=== PATIENT | female | born 1950 | race Caucasian/White ===

== ENCOUNTER 2021-11-12 09:45 | Day surgery (SDC) | payer MEDICARE, OTHER ==
[~2021-11-12] VITALS: Ht 165 cm; Wt 49.0 kg
[~2021-11-12 09:45] MED LIST: ASCORBIC ACID500 MG PO; BACLOFEN 20MG T20 MG PO; CALCIUM WITH D3 PO; HYDROCODON-ACE1 EAC2 PO; LIPITOR 10MG TA10 MG PO; NEURONTIN300 MG PO; PROLIA60 MG/1 ML SC; VITAMIN A2400 MCG PO; VITAMIN D350 MC5 PO; WARFARIN SODIU2.5 MG PO; WARFARIN SODIUM5 MG PO
[2021-11-12] MEDS ORDERED: ELIQUIS5 MG PO (10:52)
[2021-11-12 11:47] LABS: INR 1.03 (0.9-1.2); PROTHROMBIN TIME 12.9 SECONDS (11.8-13.4); PTT 27.5 SECONDS (24.4-34.7)
[2021-11-13 07:26] LABS: BASOPHIL 0.3 % (0-2); EOSINOPHIL 2.3 % (0-7); HCT 33.9 % (37.0-47.0); HGB 10.6 g/dl (12.5-16.0); LYMPHOCYTE 14.7 % (15-48); MCH 29.9 pg (25.0-31.0); MCHC 31.3 g/dL (32.0-36.0); MCV 95.5 fL (78.0-100.0); MONOCYTE 10.3 % (0-12); MPV 10.2 fL (6.0-9.5); NEUTROPHIL 72.1 % (41-80); NRBC 0; PLT 264 K/uL (150-400); RBC 3.55 M/uL (4.20-5.40); RDW 12.9 % (11.5-14.0); WBC 11.9 K/uL (4.0-10.5)
[2021-11-13 07:29] LABS: INR 1.08 (0.9-1.2); PROTHROMBIN TIME 13.4 SECONDS (11.8-13.4)
[2021-11-13 07:30] LABS: PTT 32.4 SECONDS (24.4-34.7)
[2021-11-13 07:39] LABS: BUN/CREAT RATIO (CALC) 12.2 RATIO; CREATININE 0.74 mg/dL (0.51-0.95); POTASSIUM 3.8 mmol/L (3.5-5.1)
[2021-11-13] MEDS ORDERED: ONDANSETRON HCL4 MG PO (08:42)
[2021-11-13] MEDS ORDERED: OXYCODONE-ACET1 EAC1 PO (08:42)
[2021-11-13] MEDS ORDERED: FEOSOL325 MG PO (08:42)
[2021-11-13] MEDS ORDERED: LOVENOX60 MG/0.6 SC (08:42)
--- NOTE | 2021-11-13 10:18 | NUR ---
PT. TO D/C HOME WITH SPOUSE THIS DATE. [facility]. [facility] WILL PROVIDE NURSING AND PT. PT SIGNED CHOICE FORM AND COPY GIVEN.
== END 2021-11-13 11:55 | disposition home or self-care (01) ==
LOC: FAS 09:45 → FOFB 14:09 → FAS 11-13 11:55
PROVIDERS: Anesthesiology; Legal Medicine
DX: M17.32 Unilateral post-traumatic osteoarthritis, left knee (principal); G89.18 Other acute postprocedural pain; E78.5 Hyperlipidemia, unspecified; K21.9 Gastro-esophageal reflux disease without esophagitis; D68.2 Hereditary deficiency of other clotting factors; I10 Essential (primary) hypertension; G62.9 Polyneuropathy, unspecified; Z86.718 Personal history of other venous thrombosis and embolism; Z79.01 Long term (current) use of anticoagulants
CPT/HCPCS: 36415; 73560; 80048; 85025; 85610; 85730; 86850; 86900; 86901; 94010; 97162; 97166; 97530-GP; 97535; C1713; C1776; J0171; J0697; J1170; J1650; J1885; J2175; J2250; J2270; J2405; J2795; J3010; J7120